=== PATIENT | female | born 1955 ===

== ENCOUNTER 2019-11-19 06:00 | Outpatient (RCR) | payer OTHER, SELFPAY | END 2019-11-25 23:59 | disposition home or self-care (01) | LOC: WPT 06:00 | PROVIDERS: PCP Nurse Practitioner; Referring Provider Nurse Practitioner Family; Visit Provider Nurse Practitioner Family | DX: M17.11 Unilateral primary osteoarthritis, right knee (principal) | CPT/HCPCS: 97110; 97116; 97161 ==

== ENCOUNTER 2019-11-26 06:00 | Outpatient (RCR) | payer OTHER, SELFPAY | END 2019-12-26 23:59 | disposition home or self-care (01) | LOC: WPT 06:00 | PROVIDERS: PCP Nurse Practitioner; Referring Provider Nurse Practitioner Family; Visit Provider Nurse Practitioner Family | DX: M17.11 Unilateral primary osteoarthritis, right knee (principal) | CPT/HCPCS: 97110; 97116; 97140 ==

== ENCOUNTER 2019-12-27 06:00 | Outpatient (RCR) | payer OTHER, SELFPAY | END 2020-01-26 23:59 | disposition home or self-care (01) | LOC: WPT 06:00 | PROVIDERS: PCP Nurse Practitioner; Referring Provider Nurse Practitioner Family; Visit Provider Nurse Practitioner Family | DX: Z47.1 Aftercare following joint replacement surgery (principal); Z96.651 Presence of right artificial knee joint | CPT/HCPCS: 97110; 97116 ==

== ENCOUNTER 2020-03-09 06:00 | Outpatient (RCR) | payer MEDICARE, SELFPAY | END 2020-03-27 23:59 | disposition home or self-care (01) | LOC: WPT 06:00 | DX: M75.41 Impingement syndrome of right shoulder (principal) | CPT/HCPCS: 97110; 97162 ==

== ENCOUNTER 2020-03-28 06:00 | Outpatient (RCR) | payer MEDICARE, SELFPAY | END 2020-04-26 23:59 | disposition home or self-care (01) | LOC: WPT 06:00 | DX: M75.41 Impingement syndrome of right shoulder (principal) | CPT/HCPCS: 97110 ==

== ENCOUNTER 2021-08-16 06:00 | Outpatient (RCR) | payer MEDICARE, SELFPAY | END 2021-08-25 23:59 | disposition home or self-care (01) | LOC: WPT 06:00 | PROVIDERS: Referring Provider Internal Medicine; Visit Provider Internal Medicine | DX: M54.16 Radiculopathy, lumbar region (principal); M25.551 Pain in right hip | CPT/HCPCS: 97110; 97161; 97530 ==

== ENCOUNTER 2021-08-26 06:00 | Outpatient (RCR) | payer MEDICARE, SELFPAY | END 2021-09-24 23:59 | disposition home or self-care (01) | LOC: WPT 06:00 | PROVIDERS: Referring Provider Internal Medicine; Visit Provider Internal Medicine | DX: M54.16 Radiculopathy, lumbar region (principal) | CPT/HCPCS: 97110; 97140 ==

== ENCOUNTER → 2024-07-07 15:48 | Outpatient (BNVA) | payer MEDICARE, OTHER, SELFPAY | PROVIDERS: Visit Provider Nurse Practitioner Family | DX: M17.12 Unilateral primary osteoarthritis, left knee (principal); M25.562 Pain in left knee | CPT/HCPCS: 73562 ==

== ENCOUNTER → 2024-07-17 10:56 | Outpatient (BNVA) | payer MEDICARE, OTHER, SELFPAY | PROVIDERS: PCP Nurse Practitioner Family; Visit Provider Nurse Practitioner Family | DX: R50.9 Fever, unspecified (principal) | CPT/HCPCS: 87400; 87426 ==

== ENCOUNTER → 2024-08-22 11:04 | Outpatient (BNVA) | payer MEDICARE, OTHER, SELFPAY | PROVIDERS: PCP Nurse Practitioner Family; Visit Provider Nurse Practitioner Family | DX: L82.1 Other seborrheic keratosis (principal); L81.4 Other melanin hyperpigmentation; L57.8 Other skin changes due to chronic exposure to nonionizing radiation; X32.XXXA Exposure to sunlight, initial encounter; D22.39 Melanocytic nevi of other parts of face; D48.5 Neoplasm of uncertain behavior of skin | CPT/HCPCS: 11102; 99203 ==